=== PATIENT | female | born 1975 | race Caucasian/White ===

== ENCOUNTER 2021-09-17 09:01 | Outpatient (CLI) | payer BC ==
[2021-09-17 10:43] LABS: Hemoglobin 13.5 g/dL (12.0-15.5); Mean Corpuscular HGB CONC 31.7 g/dL (32.0-36.0); Mean Corpuscular Hemoglobin 28.8 pg (27.0-33.0); Mean Corpuscular Volume 90.8 fl (81.6-98.3); Mean Platelet Volume 10.2 fl (7.4-10.4); Platelet Count 334 10x3/uL (150-450); RBC Distribution Width 12.4 % (11.5-14.5); Red Blood Cell (RBC) Count 4.69 10x6/uL (3.90-5.03); White Blood Cell (WBC) Count 7.2 10x3/uL (3.5-10.5)
[2021-09-17 11:04] LABS: INR-International Normal Ratio 0.9; PTT 25.8 sec (22.0-33.0); Prothrombin Time 10.5 sec (9.5-12.1)
[2021-09-17 19:08] LABS: SARS-CoV-2 PCR by NAA Not Detected (NotDetected)
== END 2021-09-17 09:02 | disposition home or self-care (01) ==
LOC: LABBT 09:01
PROVIDERS: ATTEND Neurological Surgery
DX: Z01.812 Encounter for preprocedural laboratory examination (principal); M51.26 Other intervertebral disc displacement, lumbar region; Z20.822 Contact with and (suspected) exposure to COVID-19
CPT/HCPCS: 85027; 85610; 85730; U0003; U0005

== ENCOUNTER 2021-09-21 06:42 | Day surgery (SDC) | payer BC ==
[2021-09-18 13:22] VITALS: BMI 23.7
[2021-09-21] MEDS ORDERED: EPINEPHrine 1 MG/ML AMP ONE (08:31)
[2021-09-21] MEDS ORDERED: Bupivacaine PF 0.5% 30 ML VIAL ONE (08:31)
[2021-09-21] MEDS ORDERED: Fentanyl 100 MCG/2 ML VIAL ONE ×3 (08:50→11:21)
[2021-09-21] MEDS ORDERED: Scopolamine 1.5 mg/72 hour Patch ONE (08:50)
[2021-09-21] MEDS ORDERED: Midazolam HCl 2 mg/2 ml Vial ONE (08:50)
[2021-09-21] MEDS ORDERED: Propofol 1,000 MG/100 ML VIAL IV ONE (09:28)
[2021-09-21] MEDS ORDERED: PROPOFOL 200 MG/20 ML VIAL ONE (09:35)
[2021-09-21] MEDS ORDERED: Dexamethasone 20 MG/5 ML VIAL ONE (09:35)
[2021-09-21] MEDS ORDERED: Rocuronium Bromide 10 MG/ML (10ML VIAL) ONE (09:35)
[2021-09-21] MEDS ORDERED: Lidocaine 1% PF 5 ML VIAL ONE (09:35)
[2021-09-21] MEDS ORDERED: Ondansetron PF 4 MG/2 ML Vial ONE ×3 (09:35→11:01)
[2021-09-21] MEDS ORDERED: SUGAMMADEX SODIUM 200 MG/2 ML VIAL ONE (10:37)
[2021-09-21] MEDS ORDERED: Promethazine HCl 25 MG/ML VIAL ONE (10:52)
[2021-09-21] MEDS ORDERED: HYDROmorphone 0.5 MG/0.5 ML SYRINGE ONE (11:00)
[2021-09-21] MEDS ORDERED: Meperidine HCl/PF 25 MG/ML VIAL ONE (11:16)
[2021-09-21] MEDS ORDERED: ceFAZolin 2 GM/DEX 5% 100 ML BAG ONE ×2 (15:44)
== END 2021-09-21 16:26 | disposition home or self-care (01) ==
LOC: SDC 06:42
PROVIDERS: ATTEND Neurological Surgery
PROC: 0SB40ZZ Excision of Lumbosacral Disc, Open Approach (ICD-10-PCS; principal; 2021-09-21)
DX: M51.17 Intervertebral disc disorders with radiculopathy, lumbosacral region (principal); D68.51 Activated protein C resistance; G43.909 Migraine, unspecified, not intractable, without status migrainosus; I10 Essential (primary) hypertension; Z79.899 Other long term (current) drug therapy
CPT/HCPCS: 76000; J0171; J1100; J1170; J2175; J2250; J2405; J2550; J2704; J3010; S0020